=== PATIENT | female | born 1985 | race Caucasian/White ===

== ENCOUNTER 2018-03-06 18:51 | Inpatient (IN) ==
[2018-03-06] MEDS ORDERED: Tetanus/Diphtheria Toxoid Adult Vaccine Inj 0.5 ML Vial IM ONE (19:27)
[2018-03-06] MEDS ORDERED: Piperacil/Tazo 3.375 GM Premix 50 ML IV.SIG ONE (19:32)
[2018-03-06] MEDS ORDERED: Clindamycin 900 mg/NS Premix 900 MG/50 ML PIGGYBACK IV.SIG ONE (19:34)
--- NOTE | 2018-03-06 19:37 | ED ---
HPI General Chief Complaint: Animal Bite Stated Complaint: FGC/Dog Bite Time Seen by Provider: 03/06/18 19:37 Source: patient Mode of arrival: ambulatory Limitations: no limitations History of Present Illness MD complaint: animal bite Onset (ago): hour(s) (2.5) Animal: dog Description of animal: household pet Mechanism: bite Pain description: sharp Severity scale (1-10): 9 Context: playing with animal Associated symptoms: none and weakness (due to pain refusing to move hand much) Related Data Patient tetanus UTD: No (7yrs ago) Home Medications Medication Instructions Recorded Confirmed No Known Home Medications 03/06/18 03/06/18 Allergies Allergy/AdvReac Type Severity Reaction Status Date / Time No Known Allergies Allergy Unverified 03/06/18 18:55 [facility] Medical History Medical History Patient denies medical problems (Acute) Social History Social History Smoking Status: Never smoker How Often Do You Have a Drink Containing Alcohol: 2 to 3 times a week Recent Travel in [facility] within the Last 8 Weeks: No Recent Out of Country Travel within the Last 8 Weeks: No Immunization History Tetanus Immunization: >5 Years Hx Influenza Vaccine This Season: No Exam Narrative Exam Narrative: GENERAL: Well-nourished, well-developed patient in no apparent distress. SKIN: Warm and dry. HEAD: Atraumatic. Normocephalic. EYES: Pupils equal and round. No scleral icterus. No injection or drainage. ENT: No nasal bleeding or discharge. Mucous membranes pink and moist. NECK: Trachea midline. No JVD. CARDIOVASCULAR: Regular rate and rhythm. no rubs or gallops RESPIRATORY: No accessory muscle use. Clear to auscultation. Breath sounds equal bilaterally. GASTROINTESTINAL: Abdomen soft, non-tender, nondistended. No rebound or guarding MUSCULOSKELETAL: Extremities without clubbing, cyanosis, or edema. No obvious deformities. Puncture wound to left hand near the snuffbox with exposed tendon NEUROLOGICAL: Awake and alert. No obvious cranial nerve deficits. Motor grossly within normal limits. Five out of 5 muscle strength in the arms and legs. Normal speech. PSYCHIATRIC: Appropriate mood and affect; insight and judgment normal. Course Initial Documented Vital Signs Pulse Rate 60 03/06/18 18:55 Respiratory Rate 18 03/06/18 18:55 Blood Pressure 111/63 03/06/18 18:55 Pulse Oximetry 100 03/06/18 18:55 Last Documented Vital Signs Temperature 97.9 F 03/06/18 18:58 Pulse Rate 60 03/06/18 18:55 Respiratory Rate 18 03/06/18 18:55 Blood Pressure 111/63 03/06/18 18:55 Pulse Oximetry 100 03/06/18 18:55 Medical Decision Making Lab Data Result diagrams: 03/06/18 18:30 03/06/18 18:30 Lab Results 03/06/18 03/06/18 Range/Units 18:30 18:30 WBC 5.6 (4.0-11.0) th/mm3 RBC 3.98 L (4.00-5.30) mil/mm3 Hgb 12.1 (11.6-15.3) gm/dL Hct 36.1 (35.0-46.0) % MCV 90.9 (80.0-100.0) fL MCH 30.5 (27.0-34.0) pg MCHC 33.5 (32.0-36.0) % RDW 12.5 (11.6-17.2) % Plt Count 247 (150-450) th/mm3 MPV 8.8 (7.0-11.0) fL Neut % (Auto) 61.7 (16.0-70.0) % Lymph % (Auto) 29.2 (9.0-44.0) % [place] % (Auto) 7.6 (0.0-8.0) % Eos % (Auto) 1.0 (0.0-4.0) % Baso % (Auto) 0.5 (0.0-2.0) % Neut # (Auto) 3.4 (1.8-7.7) th/mm3 Lymph # (Auto) 1.6 (1.0-4.8) th/mm3 [place] # (Auto) 0.4 (0.0-0.9) th/mm3 Eos # (Auto) 0.1 (0.0-0.4) th/mm3 Baso # (Auto) 0.0 (0.0-0.2) th/mm3 WBC Differential . Differential Comment Auto diff final Sodium 139 (136-145) meq/L Potassium 3.2 L (3.5-5.1) meq/L Chloride 105 (98-107) meq/L Carbon Dioxide 24.5 (21.0-32.0) meq/L Anion Gap 10 (5-15) meq/L BUN 14 (7-18) mg/dL Creatinine 1.00 (0.50-1.00) mg/dL Estimated GFR 63 L (>89) mL/min Random Glucose 85 (74-106) mg/dL Calcium 8.7 (8.5-10.1) mg/dL Imaging Data Radiologist's impression: Hand X-Ray 03/06/18 19:27 CONCLUSION: Unremarkable study. Discharge Plan Physicians Team ED Provider: Mike Ingram Primary Care Provider: Primary Care Renee Vargas Rxs /Orders / Referrals /Forms Prescriptions: No Action No Known Home Medications RF: 0 Status ED Status: With Doctor
[2018-03-06] MEDS ORDERED: Morphine Inj 4 MG/ML Vial IV.PUSH ONE (19:38)
[2018-03-06 20:08] LABS: Baso % (Auto) 0.5 % (0.0-2.0); Eos # (Auto) 0.1 th/mm3 (0.0-0.4); Hematocrit 36.1 % (35.0-46.0); Hemoglobin 12.1 gm/dL (11.6-15.3); Lymph # (Auto) 1.6 th/mm3 (1.0-4.8); Lymph % (Auto) 29.2 % (9.0-44.0); Mean Corpuscular HGB Conc 33.5 % (32.0-36.0); Mean Corpuscular Hemoglobin 30.5 pg (27.0-34.0); Mean Corpuscular Volume 90.9 fL (80.0-100.0); Mean Platelet Volume 8.8 fL (7.0-11.0); Mono # (Auto) 0.4 th/mm3 (0.0-0.9); Mono % (Auto) 7.6 % (0.0-8.0); Neut # (Auto) 3.4 th/mm3 (1.8-7.7); Neut % (Auto) 61.7 % (16.0-70.0); Platelet Count 247 th/mm3 (150-450); Red Blood Count 3.98 mil/mm3 (4.00-5.30); Red Cell Distribution Width 12.5 % (11.6-17.2); White Blood Count 5.6 th/mm3 (4.0-11.0)
--- NOTE | 2018-03-06 20:16 | XR ---
EXAM DATE: 03/06/2018 8:12 PM EDT AGE/SEX: 32 years / Female INDICATIONS: Left hand pain after getting bit by a dog today. Unable to move left hand since. Open laceration with possible tendon or ligament hanging out near first digit. CLINICAL DATA: This is the patient's initial encounter. Patient reports that signs and symptoms have been present for 1 day and indicates a pain score of 10/10. MEDICAL/SURGICAL HISTORY: None. None. COMPARISON: . FINDINGS: No definite fractures, or dislocations are identified. No definite lytic or sclerotic les ion is seen. The joint spaces are well maintained. CONCLUSION: Unremarkable study. Electronically signed by: Carolyn Wallace MD 03/06/2018 8:14 PM EDT
[2018-03-06 20:19] LABS: Calcium 8.7 mg/dL (8.5-10.1); Carbon Dioxide 24.5 meq/L (21.0-32.0); Potassium 3.2 meq/L (3.5-5.1)
[2018-03-06 20:34] LABS: Activated Partial Thrombo Time 20.8 sec (24.3-30.1); INR 1.1 Ratio
[2018-03-06] MEDS ORDERED: Acetaminophen 325 MG Tablet PO PRN (20:57)
[2018-03-06] MEDS ORDERED: Bisacodyl 10 MG Supp RECTAL PRN (20:57)
--- NOTE | 2018-03-06 21:08 | P.HPIM ---
History of Present Illness Primary Care Physician: No Primary Care Physician History of Present Illness: This is a 32-year-old female with no significant PMH was brought to the ER by EMS after dog bite to left hand. Pt states she was bitten by her own pitbull/ mix dog, notes vaccines up to date. No other injuries noted. On arrival, BP 111/63, HR 60, O2 sat 100% on RA, Afebrile. BC unremarkable. INR 1.1. Chemistry unremarkable except for K+ 3.2. Hand X-ray unremarkable. On exam, patient noted to have puncture wound to left hand w/ exposed tendon, decreased ROM of thumb/2nd finger due to injury. Dr. Covarrubias consulted, plan is for surgical intervention. - Diagnosis (1) Dog bite (2) Hand injury (3) Hypokalemia Review of Systems PAST FAMILY HISTORY: Reviewed. No h/o DM or CAD All other systems reviewed negative except as stated in [facility]PI [facility] - History History Provided By: Patient - Medical History Medical History: Medical History (Last Updated 03/06/18 @ 18:58 by Natalie Prakash RN) Patient denies medical problems - Tobacco History Smoking Status: Never smoker - Alcohol History How Often Do You Have a Drink Containing Alcohol: 2 to 3 times a week - Travel History Recent Travel in the [place] Within the Last 8 Weeks: No Recent Travel Out of the Country Within the Last 8 Weeks: No - Immunization History Tetanus Immunization: >5 Years Hx Influenza Vaccine This Season: No Medications and Allergies Active Medications: Active Medications Acetaminophen (Tylenol) 650 mg PO Q4H PRN PRN Reason: Temp > 100.4 Al Hydroxide/Mg Hydroxide (Milk Of Magnesia Liq) 30 ml PO Q12H PRN PRN Reason: Mild Constipation Bisacodyl (Dulcolax Supp) 10 mg RECTAL DAILY PRN PRN Reason: SEVERE CONSITIPATION Ampicillin Sodium/Sulbactam (Sodium 3 gm/ Sodium Chloride) 100 mls @ 200 mls/ hr IV.SIG Q6H LAUREN Clindamycin/Sodium Chloride (Cleocin 900 Mg/Ns Premix) 900 mg in 50 mls @ 100 mls/hr IV.SIG Q8H LAUREN Sodium Chloride (Ns Inj) 1,000 mls @ 100 mls/hr IV.CONT .Q10H LAUREN Lactulose (Lactulose Liq) 30 ml PO DAILY PRN PRN Reason: SEVERE CONSITIPATION Morphine Sulfate (Morphine Inj) 2 mg IV.PUSH Q4H PRN PRN Reason: PAIN 6-10 Ondansetron HCl (Zofran Inj) 4 mg IV.PUSH Q6H PRN PRN Reason: NAUSEA OR VOMITING Senna/Docusate Sodium ([place]-Colace) 1 tab PO BID LAUREN Sennosides (Senokot) 17.2 mg PO Q12H PRN PRN Reason: Moderate Constipation Allergies Allergy/AdvReac Type Severity Reaction Status Date / Time No Known Allergies Allergy Unverified 03/06/18 18:55 Home Medications Medication Instructions Recorded Confirmed Type No Known Home Medications 03/06/18 03/06/18 History Exam Vital signs: Vital Signs 03/06/18 18:55 03/06/18 18:58 Temperature 97.9 F Pulse Rate 60 Respiratory Rate 18 Blood Pressure 111/63 Pulse Oximetry 100 Intake & Output 03/06/18 03/06/18 03/07/18 06:59 18:59 06:59 Intake Total 100 / 100 Balance 100 / 100 Weight 63.503 kg Intake: IV 100 / 100 Cleocin 900 mg/NS Premix 900 mg 50 / 50 In 50 ml @ 100 mls/hr IV.SIG ONCE ONE Rx#:[id number] Zosyn 3.375 GM Premix 50 ML @ 50 / 50 100 mls/hr IV.SIG ONCE ONE Rx#: [id number] Narrative: PE: GENERAL: Pleasant young white female in no acute distress. SKIN: Focused skin assessment warm and dry. HEENT: PERRLA, EOMI. No scleral icterus or conjunctival pallor. No lid lag or facial droop. CARDIOVASCULAR: Regular rate and rhythm. No obvious murmurs to auscultation. No chest tenderness to palpation. RESPIRATORY: No obvious rhonchi or wheezing. Clear to auscultation. Breath sounds equal bilaterally. GASTROINTESTINAL: Abdomen soft, non-tender, nondistended. BS normal. MUSCULOSKELETAL: Extremities without clubbing, cyanosis, or edema. No obvious deformities. Left hand w/ puncture to left thumb/snuff box w/ exposed tendon. Decreased ROM of 1st/2nd digits. NEUROLOGICAL: Awake, alert and oriented x4. No focal neurologic deficits. Moving both upper and lower extremities spontaneously. PSYCHIATRIC: Appropriate mood and affect. Insight and judgment normal. Results - Labs CBC & Chem 7: 03/06/18 18:30 03/06/18 18:30 Labs: Short CBC 03/06/18 Range/Units 18:30 WBC 5.6 (4.0-11.0) th/mm3 Hgb 12.1 (11.6-15.3) gm/dL Hct 36.1 (35.0-46.0) % Plt Count 247 (150-450) th/mm3 BMP 03/06/18 18:30 Sodium 139 Potassium 3.2 L Chloride 105 Carbon Dioxide 24.5 BUN 14 Creatinine 1.00 Calcium 8.7 - Imaging Impressions Hand X-Ray 03/06/18 19:27 CONCLUSION: Unremarkable study. Caprini VTE Risk Assessment Caprini VTE Risk Assessment: No/Low Risk (score <= 1) Caprini Risk Assessment Model: Point Value = 1 Point Value = 2 Point Value = 3 Point Value = 5 Age 41-60 Minor surgery BMI > 25 kg/m2 Swollen legs Varicose veins or History of unexplained or recurrent spontaneous Oral contraceptives or hormone replacement Sepsis (< 1 month) Serious lung disease, including pneumonia (< 1 month) Abnormal pulmonary function Acute myocardial infarction Congestive heart failure (< 1 month) History of inflammatory bowel disease Medical patient at bed rest Age 61-74 Arthroscopic surgery Major open surgery (> 45 min) Laparoscopic surgery (> 45 min) Malignancy Confined to bed (> 72 hours) Immobilizing plaster cast Central venous access Age >= 75 History of VTE Family history of VTE Factor V Leiden Prothrombin [id number] Lupus anticoagulant Anticardiolipin antibodies Elevated serum homocysteine Heparin-induced thrombocytopenia Other congenital or acquired thrombophilia Stroke (< 1 month) Elective arthroplasty Hip, pelvis, or leg fracture Acute spinal cord injury (< 1 month) Prophylaxis Regimen: Total Risk Factor Score Risk Level Prophylaxis Regimen 0-1 Low Early ambulation 2 Moderate Order ONE of the following: *Sequential Compression Device (SCD) *Heparin 5000 units SQ BID 3-4 Higher Order ONE of the following medications: *Heparin 5000 units SQ TID *Enoxaparin/Lovenox 40 mg SQ daily (WT < 150 kg, CrCl > 30 mL/min) *Enoxaparin/Lovenox 30 mg SQ daily (WT < 150 kg, CrCl > 10-29 mL/min) *Enoxaparin/Lovenox 30 mg SQ BID (WT < 150 kg, CrCl > 30 mL/min) AND/OR *Sequential Compression Device (SCD) 5 or more Highest Order ONE of the following medications: *Heparin 5000 units SQ TID (Preferred with Epidurals) *Enoxaparin/Lovenox 40 mg SQ daily (WT < 150 kg, CrCl > 30 mL/min) *Enoxaparin/Lovenox 30 mg SQ daily (WT < 150 kg, CrCl > 10-29 mL/min) *Enoxaparin/Lovenox 30 mg SQ BID (WT < 150 kg, CrCl > 30 mL/min) AND *Sequential Compression Device (SCD) Assessment and Plan - Assessment (1) Dog bite Code(s): W54.0XXA - Bitten by dog, initial encounter Status: Acute (2) Hand injury Code(s): S69.90XA - Unspecified injury of unspecified wrist, hand and finger(s) , initial encounter Status: Acute (3) Hypokalemia Code(s): E87.6 - Hypokalemia Status: Acute - Plan A/P: 1. Dog Bite: s/p dog bite to left hand by pt's own dog, notes vaccinations up to date, s/p Tetanus in ER. 2. Hand Injury: secondary to above, left thumb/snuff box puncture w/ exposed tendon, X-ray w/ no acute findings, images reviewed, Dr. Covarrubias consulted, plan is for surgical intervention. NPO, IVF, analgesics/antiemetics as needed. 3. Hypokalemia: K+ 3.2, will replace and recheck as needed. 4. DVT Prophylaxis: SCD/Teds 5. Social work for d/c planning as needed 6. Case discussed w/ ER physician at length, labs/records/imaging reviewed by me
[2018-03-06] MEDS: Senna/Docusate Sodium 8.6/50 MG Tablet PO SCH (21:45)
[2018-03-06] MEDS: Sod Chloride 0.9% Inj 1,000 ML IV.CONT SCH (21:46)
[2018-03-07] MEDS: Morphine Sulfate Inj 2 MG/ML Vial IV.PUSH PRN ×4 (00:09→14:39)
[2018-03-07] MEDS: Ampicillin/Sulbactam Inj 3 GM in Sodium Chloride 0.9% Inj 100 ML IV.SIG SCH ×5 (02:16→20:43)
[2018-03-07] MEDS: Clindamycin 900 mg/NS Premix 900 MG/50 ML PIGGYBACK IV.SIG SCH ×3 (03:04→17:38)
[2018-03-07 05:36] LABS: Baso % (Auto) 0.4 % (0.0-2.0); Eos % (Auto) 0.1 % (0.0-4.0); Hematocrit 35.1 % (35.0-46.0); Hemoglobin 11.6 gm/dL (11.6-15.3); Lymph # (Auto) 1.2 th/mm3 (1.0-4.8); Lymph % (Auto) 19.6 % (9.0-44.0); Mean Corpuscular HGB Conc 33.1 % (32.0-36.0); Mean Corpuscular Volume 90.7 fL (80.0-100.0); Mono # (Auto) 0.6 th/mm3 (0.0-0.9); Mono % (Auto) 9.1 % (0.0-8.0); Neut # (Auto) 4.3 th/mm3 (1.8-7.7); Neut % (Auto) 70.8 % (16.0-70.0); Platelet Count 229 th/mm3 (150-450); Red Blood Count 3.87 mil/mm3 (4.00-5.30); Red Cell Distribution Width 12.7 % (11.6-17.2); White Blood Count 6.1 th/mm3 (4.0-11.0)
[2018-03-07 06:11] LABS: Alanine Aminotransferase 20 U/L (10-53); Albumin 3.5 g/dL (3.4-5.0); Alkaline Phosphatase 47 U/L (45-117); Anion Gap 9 meq/L (5-15); Aspartate Aminotransferase 13 U/L (15-37); Blood Urea Nitrogen 12 mg/dL (7-18); Calcium 8.2 mg/dL (8.5-10.1); Carbon Dioxide 22.7 meq/L (21.0-32.0); Chloride 109 meq/L (98-107); Glomerular Filtration Rate 79 mL/min (>89); Glucose,Random 94 mg/dL (74-106); Potassium 4.1 meq/L (3.5-5.1); Sodium 141 meq/L (136-145); Total Protein 6.4 g/dL (6.4-8.2)
[2018-03-07] MEDS: Senna/Docusate Sodium 8.6/50 MG Tablet PO SCH ×2 (08:57→20:44)
[2018-03-07] MEDS: Sod Chloride 0.9% Inj 1,000 ML IV.CONT SCH ×2 (08:57→17:39)
[2018-03-07] MEDS ORDERED: Lidocaine 2% Inj 50 ML Vial ONE (10:53)
[2018-03-07] MEDS ORDERED: Neostigmine Inj 5 MG/5 ML Syringe IV.PUSH ONE (11:15)
[2018-03-07] MEDS ORDERED: Glycopyrrolate Inj 1 MG/5 ML Syringe IV.PUSH ONE (11:15)
[2018-03-07] MEDS ORDERED: Ketorolac Inj 30 MG/ML (IVP) Vial IV.PUSH ONE (11:15)
[2018-03-07] MEDS ORDERED: Lidocaine PF 1% Inj 5 ML Syringe OTHER ONE (11:15)
--- NOTE | 2018-03-07 11:50 | P.PNIM ---
Subjective Interval history: This is a 32-year-old female with no significant PMH was brought to the ER by EMS after dog bite to left hand. Pt states she was bitten by her own pitbull/ mix dog, notes vaccines up to date. No other injuries noted. On arrival, BP 111/63, HR 60, O2 sat 100% on RA, Afebrile. BC unremarkable. INR 1.1. Chemistry unremarkable except for K+ 3.2. Hand X-ray unremarkable. On exam, patient noted to have puncture wound to left hand w/ exposed tendon, decreased ROM of thumb/2nd finger due to injury. Dr. Covarrubias consulted, plan is for surgical intervention. 03-07 PATIENT TO GO FOR SURGERY WITH DR COVARRUBIAS TODAY CONTINUE CURRENT CARE AM LABS DW RN AND PATIENT AND CASE MANAGEMENT Physical Exam Vital signs: Vital Signs 03/06/18 18:55 03/06/18 18:58 03/07/18 00:00 Temperature 97.9 F 97.6 F Pulse Rate 60 55 L Respiratory Rate 18 16 Blood Pressure 111/63 106/59 L Pulse Oximetry 100 97 03/07/18 04:00 03/07/18 08:00 Temperature 97.7 F 98.2 F Pulse Rate 54 L 50 L Respiratory Rate 16 14 Blood Pressure 103/52 L 103/58 L Pulse Oximetry 97 100 Intake & Output 03/06/18 03/07/18 03/07/18 18:59 06:59 18:59 Intake Total 270 / 270 1080 / 1080 Balance 270 / 270 1080 / 1080 Weight 63.503 kg 63.5 kg Intake: IV 270 / 270 1080 / 1080 NS Inj 1,000 ML @ 100 mls/hr IV 20 980 / 980 .CONT .Q10H LAUREN Rx#:[id number] Unasyn Inj 3 GM In NS Inj 100 100 / 100 100 / 100 ML @ 200 mls/hr IV.SIG Q6H LAUREN Rx#:[id number] Cleocin 900 mg/NS Premix 900 mg 100 / 100 In 50 ml @ 100 mls/hr IV.SIG Q8H LAUREN Rx#:[id number] Zosyn 3.375 GM Premix 50 ML @ 50 / 50 100 mls/hr IV.SIG ONCE ONE Rx#: [id number] Other: Date of Last Bowel Movement 03/06/18 03/06/18 Narrative: GENERAL: Pleasant young white female in no acute distress. SKIN: Focused skin assessment warm and dry. LEFT HAND IS DRESSED HEENT: PERRLA, EOMI. No scleral icterus or conjunctival pallor. No lid lag or facial droop. CARDIOVASCULAR: Regular rate and rhythm. No obvious murmurs to auscultation. No chest tenderness to palpation. RESPIRATORY: No obvious rhonchi or wheezing. Clear to auscultation. Breath sounds equal bilaterally. GASTROINTESTINAL: Abdomen soft, non-tender, nondistended. BS normal. MUSCULOSKELETAL: Extremities without clubbing, cyanosis, or edema. No obvious deformities. Left hand w/ puncture to left thumb/snuff box w/ exposed tendon. Decreased ROM of 1st/2nd digits. LEFT HAND IS DRESSED NEUROLOGICAL: Awake, alert and oriented x4. No focal neurologic deficits. Moving both upper and lower extremities spontaneously. PSYCHIATRIC: Appropriate mood and affect. Insight and judgment normal. Results - Labs CBC & Chem 7: 03/07/18 04:30 03/07/18 04:30 Laboratory Results - last 24 hr 03/06/18 03/06/18 03/06/18 18:30 18:30 18:30 WBC 5.6 RBC 3.98 L Hgb 12.1 Hct 36.1 MCV 90.9 MCH 30.5 MCHC 33.5 RDW 12.5 Plt Count 247 MPV 8.8 Neut % (Auto) 61.7 Lymph % (Auto) 29.2 [place] % (Auto) 7.6 Eos % (Auto) 1.0 Baso % (Auto) 0.5 Neut # (Auto) 3.4 Lymph # (Auto) 1.6 [place] # (Auto) 0.4 Eos # (Auto) 0.1 Baso # (Auto) 0.0 WBC Differential . Differential Comment Auto diff final PT 11.0 INR 1.1 APTT 20.8 L Sodium 139 Potassium 3.2 L Chloride 105 Carbon Dioxide 24.5 Anion Gap 10 BUN 14 Creatinine 1.00 Estimated GFR 63 L Random Glucose 85 Calcium 8.7 Total Bilirubin AST ALT Alkaline Phosphatase Total Protein Albumin 03/07/18 03/07/18 04:30 04:30 WBC 6.1 RBC 3.87 L Hgb 11.6 Hct 35.1 MCV 90.7 MCH 30.0 MCHC 33.1 RDW 12.7 Plt Count 229 MPV 9.0 Neut % (Auto) 70.8 H Lymph % (Auto) 19.6 [place] % (Auto) 9.1 H Eos % (Auto) 0.1 Baso % (Auto) 0.4 Neut # (Auto) 4.3 Lymph # (Auto) 1.2 [place] # (Auto) 0.6 Eos # (Auto) 0.0 Baso # (Auto) 0.0 WBC Differential . Differential Comment Auto diff final PT INR APTT Sodium 141 Potassium 4.1 D Chloride 109 H Carbon Dioxide 22.7 Anion Gap 9 BUN 12 Creatinine 0.83 Estimated GFR 79 L Random Glucose 94 Calcium 8.2 L Total Bilirubin 0.9 AST 13 L ALT 20 Alkaline Phosphatase 47 Total Protein 6.4 Albumin 3.5 - Imaging Impressions Hand X-Ray 03/06/18 19:27 CONCLUSION: Unremarkable study. Assessment and Plan - Assessment (1) Dog bite Code(s): W54.0XXA - Bitten by dog, initial encounter Status: Acute (2) Hand injury Code(s): S69.90XA - Unspecified injury of unspecified wrist, hand and finger(s) , initial encounter Status: Acute (3) Hypokalemia Code(s): E87.6 - Hypokalemia Status: Acute - Plan 1. Dog Bite: s/p dog bite to left hand by pt's own dog, notes vaccinations up to date, s/p Tetanus in ER. 2. Hand Injury: secondary to above, left thumb/snuff box puncture w/ exposed tendon, X-ray w/ no acute findings, images reviewed, Dr. Covarrubias consulted, plan is for surgical intervention. NPO, IVF, analgesics/antiemetics as needed. --TO GO FOR SURGERY TODAY 3. Hypokalemia: K+ 3.2, will replace and recheck as needed. 4. DVT Prophylaxis: SCD/Teds 5. Social work for d/c planning as needed AM LABS DW RN AND PT AND CM Code Status: FULL CODE Discussed Condition With: RN AND PT AND CM Discharge Planning: ONCE CLEARED BY HAND SURGERY
[2018-03-07] MEDS ORDERED: Neomycin/Polymyxin G.U. Irrigant 1 ML Ampul ONE ×2 (11:57→12:01)
--- NOTE | 2018-03-07 13:56 | P.PNOP ---
Physical Exam Vital signs: Vital Signs 03/06/18 18:55 03/06/18 18:58 03/07/18 00:00 Temperature 97.9 F 97.6 F Pulse Rate 60 55 L Respiratory Rate 18 16 Blood Pressure 111/63 106/59 L Pulse Oximetry 100 97 03/07/18 04:00 03/07/18 08:00 Temperature 97.7 F 98.2 F Pulse Rate 54 L 50 L Respiratory Rate 16 14 Blood Pressure 103/52 L 103/58 L Pulse Oximetry 97 100 Intake & Output 03/06/18 03/07/18 03/07/18 18:59 06:59 18:59 Intake Total 270 / 270 2079 Output Total Balance 270 / 270 2059 Weight 63.503 kg 63.5 kg Intake: IV 270 / 270 1180 / 1180 NS Inj 1,000 ML @ 100 mls/hr IV 980 / 980 .CONT .Q10H LAUREN Rx#:[id number] Unasyn Inj 3 GM In NS Inj 100 100 / 100 100 / 100 ML @ 200 mls/hr IV.SIG Q6H LAUREN Rx#:[id number] Cleocin 900 mg/NS Premix 900 mg 100 / 100 In 50 ml @ 100 mls/hr IV.SIG Q8H LAUREN Rx#:[id number] Zosyn 3.375 GM Premix 50 ML @ 50 / 50 100 mls/hr IV.SIG ONCE ONE Rx#: [id number] Ancef Inj 1,000 MG In NS Inj 100 / 100 100 ML @ 100 mls/hr IV.SIG ONCE ONE Rx#:[id number] Anesthesia Amount 900 / 900 Output: Estimated Blood Loss Other: Date of Last Bowel Movement 03/06/18 03/06/18 Results - Labs CBC & Chem 7: 03/07/18 04:30 03/07/18 04:30 Laboratory Results - last 24 hr 03/06/18 03/06/18 03/06/18 18:30 18:30 18:30 WBC 5.6 RBC 3.98 L Hgb 12.1 Hct 36.1 MCV 90.9 MCH 30.5 MCHC 33.5 RDW 12.5 Plt Count 247 MPV 8.8 Neut % (Auto) 61.7 Lymph % (Auto) 29.2 [place] % (Auto) 7.6 Eos % (Auto) 1.0 Baso % (Auto) 0.5 Neut # (Auto) 3.4 Lymph # (Auto) 1.6 [facility] # (Auto) 0.4 Eos # (Auto) 0.1 Baso # (Auto) 0.0 WBC Differential . Differential Comment Auto diff final PT 11.0 INR 1.1 APTT 20.8 L Sodium 139 Potassium 3.2 L Chloride 105 Carbon Dioxide 24.5 Anion Gap 10 BUN 14 Creatinine 1.00 Estimated GFR 63 L Random Glucose 85 Calcium 8.7 Total Bilirubin AST ALT Alkaline Phosphatase Total Protein Albumin 03/07/18 03/07/18 04:30 04:30 WBC 6.1 RBC 3.87 L Hgb 11.6 Hct 35.1 MCV 90.7 MCH 30.0 MCHC 33.1 RDW 12.7 Plt Count 229 MPV 9.0 Neut % (Auto) 70.8 H Lymph % (Auto) 19.6 [facility] % (Auto) 9.1 H Eos % (Auto) 0.1 Baso % (Auto) 0.4 Neut # (Auto) 4.3 Lymph # (Auto) 1.2 [facility] # (Auto) 0.6 Eos # (Auto) 0.0 Baso # (Auto) 0.0 WBC Differential . Differential Comment Auto diff final PT INR APTT Sodium 141 Potassium 4.1 D Chloride 109 H Carbon Dioxide 22.7 Anion Gap 9 BUN 12 Creatinine 0.83 Estimated GFR 79 L Random Glucose 94 Calcium 8.2 L Total Bilirubin 0.9 AST 13 L ALT 20 Alkaline Phosphatase 47 Total Protein 6.4 Albumin 3.5 - Imaging Impressions Hand X-Ray 03/06/18 19:27 CONCLUSION: Unremarkable study. Assessment and Plan - Assessment and Plan 32yF POD0 s/p I&D left hand, EIP to EPL tendon transfer for EPL avulsion -Keep splint in place -Followup in 2 weeks, will need hand therapy -Discharge on antibiotics
[2018-03-07] MEDS ORDERED: fentaNYL Citrate Inj 100 MCG/2 ML Ampul ONE (13:57)
[2018-03-07] MEDS ORDERED: Naloxone Inj 0.4 MG/ML Vial IV.PUSH PRN (17:23)
[2018-03-07] MEDS ORDERED: Morphine Sulfate Inj 2 MG/ML Vial IV.PUSH PRN (17:23)
[2018-03-07] MEDS: oxyCODONE/Acetaminophen 10/325 Tablet PO PRN ×2 (17:38→23:14)
--- NOTE | 2018-03-07 18:48 | MP ---
cc: Maritza Covarrubias MD DATE OF OPERATION: 03/07/2018 PREOPERATIVE DIAGNOSIS: 1. Dog bite, left hand. 2. Avulsion extensor pollicis longus tendon, left hand. POSTOPERATIVE DIAGNOSIS: 1. Dog bite, left hand. 2. Avulsion extensor pollicis longus tendon, left hand. PROCEDURES: 1. Irrigation and debridement, left hand, including skin and subcutaneous tissue. 2. Tendon transfer: Extensor indicis pollicis to extensor pollicis longus. SURGEON: Maritza Covarrubias MD ANESTHESIA: General and local. TOURNIQUET TIME: 62 minutes at 200 mmHg. INDICATIONS FOR PROCEDURE: Zabrina Grullon is a 32-year-old, right-hand dominant female who presented to the emergency room last night after being bitten by her dog. The patient was admitted for antibiotics and surgical intervention. Patient wanted to proceed with surgical intervention. Risks were explained which include but are not limited to wound complication, infection, stiffness, pain, need for additional surgeries, and she elected to proceed. DESCRIPTION PROCEDURE: The patient was identified in the preoperative holding area and the correct extremity was marked. The patient was taken to the operating room where anesthesia was induced. Left upper extremity was prepped in the normal sterile fashion. The wound was extended proximally and distally. The stump of the extensor pollicis longus was found distally. There was no remaining tendon proximally as there was just the EPL muscle belly without any tendon. Thus, decision was made to perform an EIP to EPL tendon transfer. The EIP was identified and incised distally. The tendon was brought underneath the sensory branch and repaired with the thumb in extension. This had improved extension of the thumb as well as well-maintained flexion to the index finger. This was repaired with a Pulvertaft weave using a FiberWire. Tourniquet was released. Hemostasis obtained. The wounds were irrigated with antibiotic saline and closed with nylon. The patient was placed at the thumb spica splint and awoken from anesthesia without any complications. She remained in the hospital on IV antibiotics and will begin on a therapy course. Maritza Covarrubias MD [facility]/karen , 02:02 PM , 02:09 PM JUAN
--- NOTE | 2018-03-07 18:51 | MB ---
cc: Maritza Covarrubias MD DATE: 03/07/2018 REASON FOR CONSULTATION: Dog bite, left hand. 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 She presented to the emergency room for evaluation. She does report a prior injury to the left hand many years ago. PAST MEDICAL HISTORY: Denies any. PAST SURGICAL HISTORY: Denies. SOCIAL HISTORY: Drinks social alcohol. Denies tobacco or drug use. PHYSICAL EXAMINATION: The patient has a puncture wound over the first web space with exposed tendon. The patient is unable to extend the thumb. She was able to extend the remaining fingers. Sensation is intact in the medial and radial distribution. 2+ radial pulse. RADIOLOGY DATA: X-rays show no fracture. ASSESSMENT AND PLAN: A 32-year-old female with a dog bite to the left hand. She elects to proceed with surgical intervention. I discussed with the patient that she may require tendon repair, possible tendon repair with an allograft, possible tendon transfer, and she elects to proceed. MD MARCIO Tafoya/karen , 02:04 PM , 02:08 PM MTDD
[2018-03-07] MEDS: Morphine Inj 4 MG/ML Vial IV.PUSH PRN (20:44)
[2018-03-08] MEDS: Clindamycin 900 mg/NS Premix 900 MG/50 ML PIGGYBACK IV.SIG SCH ×2 (01:45→10:57)
[2018-03-08] MEDS: Sod Chloride 0.9% Inj 1,000 ML IV.CONT SCH ×2 (01:48→04:36)
[2018-03-08] MEDS: Ampicillin/Sulbactam Inj 3 GM in Sodium Chloride 0.9% Inj 100 ML IV.SIG SCH ×2 (02:21→09:05)
[2018-03-08] MEDS: Morphine Inj 4 MG/ML Vial IV.PUSH PRN (02:22)
[2018-03-08 05:00] LABS: Baso % (Auto) 0.2 % (0.0-2.0); Eos % (Auto) 0.1 % (0.0-4.0); Hematocrit 32.4 % (35.0-46.0); Hemoglobin 10.9 gm/dL (11.6-15.3); Lymph # (Auto) 1.5 th/mm3 (1.0-4.8); Lymph % (Auto) 22.2 % (9.0-44.0); Mean Corpuscular HGB Conc 33.7 % (32.0-36.0); Mean Corpuscular Hemoglobin 30.6 pg (27.0-34.0); Mean Corpuscular Volume 90.8 fL (80.0-100.0); Mean Platelet Volume 8.7 fL (7.0-11.0); Mono # (Auto) 0.6 th/mm3 (0.0-0.9); Mono % (Auto) 9.6 % (0.0-8.0); Neut # (Auto) 4.6 th/mm3 (1.8-7.7); Neut % (Auto) 67.9 % (16.0-70.0); Platelet Count 214 th/mm3 (150-450); Red Blood Count 3.57 mil/mm3 (4.00-5.30); Red Cell Distribution Width 12.5 % (11.6-17.2); White Blood Count 6.8 th/mm3 (4.0-11.0)
[2018-03-08 05:22] LABS: Albumin 3.3 g/dL (3.4-5.0); Anion Gap 11 meq/L (5-15); Aspartate Aminotransferase 11 U/L (15-37); Blood Urea Nitrogen 10 mg/dL (7-18); Calcium 8.1 mg/dL (8.5-10.1); Carbon Dioxide 23.1 meq/L (21.0-32.0); Chloride 102 meq/L (98-107); Glomerular Filtration Rate 86 mL/min (>89); Glucose,Random 95 mg/dL (74-106); Potassium 4.1 meq/L (3.5-5.1); Sodium 136 meq/L (136-145)
[2018-03-08 05:31] LABS: Alanine Aminotransferase 16 U/L (10-53); Alkaline Phosphatase 43 U/L (45-117); Free T4 (Free Thyroxine) 1.41 ng/dL (0.76-1.46); Phosphorus 4.3 mg/dL (2.5-4.9); Total Protein 6.1 g/dL (6.4-8.2)
[2018-03-08] MEDS: oxyCODONE/Acetaminophen 10/325 Tablet PO PRN ×2 (05:37→11:13)
[2018-03-08] MEDS: Senna/Docusate Sodium 8.6/50 MG Tablet PO SCH (09:05)
--- NOTE | 2018-03-08 12:21 | P.PNIM ---
Subjective Interval history: This is a 32-year-old female with no significant PMH was brought to the ER by EMS after dog bite to left hand. Pt states she was bitten by her own pitbull/ mix dog, notes vaccines up to date. No other injuries noted. On arrival, BP 111/63, HR 60, O2 sat 100% on RA, Afebrile. BC unremarkable. INR 1.1. Chemistry unremarkable except for K+ 3.2. Hand X-ray unremarkable. On exam, patient noted to have puncture wound to left hand w/ exposed tendon, decreased ROM of thumb/2nd finger due to injury. Dr. Covarrubias consulted, plan is for surgical intervention. 03-07 PATIENT TO GO FOR SURGERY WITH DR COVARRUBIAS TODAY CONTINUE CURRENT CARE AM LABS STEVEN RN AND PATIENT AND CASE MANAGEMENT 03-08 TOLERATING PAIN TAKING PERCOCET STEVEN RN AND PT WANTS TO GO HOME HAS COUGH WILL GIVE MUCINEX AND AUGMENTING TAKE IS TO USE AT HOME DC TO HOME TODAY FOLLOW UP WITH DR COVARRUBIAS IN 1 WEEK Physical Exam Vital signs: Vital Signs 03/07/18 14:00 03/07/18 14:10 03/07/18 14:22 Temperature 99.0 F 99.0 F Pulse Rate 79 70 64 Respiratory Rate 18 18 21 Blood Pressure 113/58 L 110/58 L 106/55 L Pulse Oximetry 98 95 98 03/07/18 16:00 03/07/18 19:25 03/07/18 23:00 Temperature 97.9 F 98.0 F 98.1 F Pulse Rate 48 L 45 L 62 Respiratory Rate 16 17 17 Blood Pressure 116/57 L 115/59 L 114/55 L Pulse Oximetry 99 99 95 03/08/18 03:59 Temperature 98.0 F Pulse Rate 50 L Respiratory Rate 17 Blood Pressure 106/55 L Pulse Oximetry 96 Intake & Output 03/07/18 03/08/18 03/08/18 18:59 06:59 18:59 Intake Total 3066 / 3066 730 / 730 250 / 250 Output Total 20 / 20 Balance 3046 / 3046 730 / 730 250 / 250 Weight 63.5 kg Intake: IV 2166 / 2166 250 / 250 250 / 250 NS Inj 1,000 ML @ 100 mls/hr IV 1816 / 1816 100 / 100 .CONT .Q10H COUNT INCLUDES THE [facility] Rx#:[id number] Unasyn Inj 3 GM In NS Inj 100 200 / 200 200 / 200 100 / 100 ML @ 200 mls/hr IV.SIG Q6H COUNT INCLUDES THE [facility] Rx#:[id number] Cleocin 900 mg/NS Premix 900 mg 50 / 50 50 / 50 50 / 50 In 50 ml @ 100 mls/hr IV.SIG Q8H COUNT INCLUDES THE [facility] Rx#:[id number] Ancef Inj 1,000 MG In NS Inj 100 / 100 100 ML @ 100 mls/hr IV.SIG ONCE ONE Rx#:[id number] Oral 480 / 480 Anesthesia Amount 900 / 900 Output: Estimated Blood Loss Other: # Voids 6 Date of Last Bowel Movement 03/06/18 03/08/18 # Bowel Movements 0 Narrative: GENERAL: Pleasant young white female in no acute distress. SKIN: Focused skin assessment warm and dry. LEFT HAND IS DRESSED HEENT: PERRLA, EOMI. No scleral icterus or conjunctival pallor. No lid lag or facial droop. CARDIOVASCULAR: Regular rate and rhythm. No obvious murmurs to auscultation. No chest tenderness to palpation. RESPIRATORY: No obvious rhonchi or wheezing. Clear to auscultation. Breath sounds equal bilaterally. GASTROINTESTINAL: Abdomen soft, non-tender, nondistended. BS normal. MUSCULOSKELETAL: Extremities without clubbing, cyanosis, or edema. No obvious deformities. Left hand w/ puncture to left thumb/snuff box w/ exposed tendon. Decreased ROM of 1st/2nd digits. LEFT HAND IS DRESSED NEUROLOGICAL: Awake, alert and oriented x4. No focal neurologic deficits. Moving both upper and lower extremities spontaneously. PSYCHIATRIC: Appropriate mood and affect. Insight and judgment normal. Results - Labs CBC & Chem 7: 03/08/18 04:35 03/08/18 04:35 Laboratory Results - last 24 hr 03/08/18 03/08/18 04:35 04:35 WBC 6.8 RBC 3.57 L Hgb 10.9 L Hct 32.4 L MCV 90.8 MCH 30.6 MCHC 33.7 RDW 12.5 Plt Count 214 MPV 8.7 Neut % (Auto) 67.9 Lymph % (Auto) 22.2 [place] % (Auto) 9.6 H Eos % (Auto) 0.1 Baso % (Auto) 0.2 Neut # (Auto) 4.6 Lymph # (Auto) 1.5 [place] # (Auto) 0.6 Eos # (Auto) 0.0 Baso # (Auto) 0.0 WBC Differential . Differential Comment Auto diff final Sodium 136 Potassium 4.1 Chloride 102 Carbon Dioxide 23.1 Anion Gap 11 BUN 10 Creatinine 0.77 Estimated GFR 86 L Random Glucose 95 Calcium 8.1 L Phosphorus 4.3 Magnesium 2.0 Total Bilirubin 1.2 H AST 11 L ALT 16 Alkaline Phosphatase 43 L Total Protein 6.1 L Albumin 3.3 L TSH 1.220 Free T4 1.41 - Imaging Hand X-Ray 03/06/18 19:27 CONCLUSION: Unremarkable study. - Procedures DATE OF OPERATION: 03/07/2018 PREOPERATIVE DIAGNOSIS: 1. Dog bite, left hand. 2. Avulsion extensor pollicis longus tendon, left hand. POSTOPERATIVE DIAGNOSIS: 1. Dog bite, left hand. 2. Avulsion extensor pollicis longus tendon, left hand. PROCEDURES: 1. Irrigation and debridement, left hand, including skin and subcutaneous tissue. 2. Tendon transfer: Extensor indicis pollicis to extensor pollicis longus. SURGEON: Maritza Covarrubias MD ANESTHESIA: General and local. TOURNIQUET TIME: 62 minutes at 200 mmHg. INDICATIONS FOR PROCEDURE: Zabrina Grullon is a 32-year-old, right-hand dominant female who presented to the emergency room last night after being bitten by her dog. The patient was admitted for antibiotics and surgical intervention. Patient wanted to proceed with surgical intervention. Risks were explained which include but are not limited to wound complication, infection, stiffness, pain, need for additional surgeries, and she elected to proceed. DESCRIPTION PROCEDURE: The patient was identified in the preoperative holding area and the correct extremity was marked. The patient was taken to the operating room where anesthesia was induced. Left upper extremity was prepped in the normal sterile fashion. The wound was extended proximally and distally. The stump of the extensor pollicis longus was found distally. There was no remaining tendon proximally as there was just the EPL muscle belly without any tendon. Thus, decision was made to perform an EIP to EPL tendon transfer. The EIP was identified and incised distally. The tendon was brought underneath the sensory branch and repaired with the thumb in extension. This had improved extension of the thumb as well as well-maintained flexion to the index finger. This was repaired with a Pulvertaft weave using a FiberWire. Tourniquet was released. Hemostasis obtained. The wounds were irrigated with antibiotic saline and closed with nylon. The patient was placed at the thumb spica splint and awoken from anesthesia without any complications. She remained in the hospital on IV antibiotics and will begin on a therapy course. Maritza Covarrubias MD Assessment and Plan - Assessment (1) Dog bite Code(s): W54.0XXA - Bitten by dog, initial encounter Status: Acute (2) Hand injury Code(s): S69.90XA - Unspecified injury of unspecified wrist, hand and finger(s) , initial encounter Status: Acute (3) Hypokalemia Code(s): E87.6 - Hypokalemia Status: Acute - Plan 1. Dog Bite: s/p dog bite to left hand by pt's own dog, notes vaccinations up to date, s/p Tetanus in ER. 2. Hand Injury: secondary to above, left thumb/snuff box puncture w/ exposed tendon, X-ray w/ no acute findings, images reviewed, Dr. Covarrubias consulted, plan is for surgical intervention. NPO, IVF, analgesics/antiemetics as needed. --TO GO FOR SURGERY TODAY 3. Hypokalemia: K+ 3.2, will replace and recheck as needed. 4. DVT Prophylaxis: SCD/Teds 5. Social work for d/c planning as needed DC TO HOME TODAY AUGMENTIN PERCOCET AND MUCINEX DC TO HOME Code Status: FULL CODE Discussed Condition With: RN AND PT AND CM Discharge Planning: DC TO HOME TODAY
--- NOTE | 2018-03-08 12:35 | P.DS ---
Date of admission: 03/06/18 21:06 Primary care physician: No Primary Care Physician Attending physician on discharge: Nabil Solares Anticipated date of discharge: 03/08/18 Brief History from admission: This is a 32-year-old female with no significant PMH was brought to the ER by EMS after dog bite to left hand. Pt states she was bitten by her own pitbull/ mix dog, notes vaccines up to date. No other injuries noted. On arrival, BP 111/63, HR 60, O2 sat 100% on RA, Afebrile. BC unremarkable. INR 1.1. Chemistry unremarkable except for K+ 3.2. Hand X-ray unremarkable. On exam, patient noted to have puncture wound to left hand w/ exposed tendon, decreased ROM of thumb/2nd finger due to injury. Dr. Covarrubias consulted, plan is for surgical intervention. Patient update on day of discharge: This is a 32-year-old female with no significant PMH was brought to the ER by EMS after dog bite to left hand. Pt states she was bitten by her own pitbull/ mix dog, notes vaccines up to date. No other injuries noted. On arrival, BP 111/63, HR 60, O2 sat 100% on RA, Afebrile. BC unremarkable. INR 1.1. Chemistry unremarkable except for K+ 3.2. Hand X-ray unremarkable. On exam, patient noted to have puncture wound to left hand w/ exposed tendon, decreased ROM of thumb/2nd finger due to injury. Dr. Covarrubias consulted, plan is for surgical intervention. 03-07 PATIENT TO GO FOR SURGERY WITH DR COVARRUBIAS TODAY CONTINUE CURRENT CARE AM LABS STEVEN SHRESTHA AND PATIENT AND CASE MANAGEMENT 03-08 TOLERATING PAIN TAKING PERCOCET STEVEN SHRESTHA AND PT WANTS TO GO HOME HAS COUGH WILL GIVE MUCINEX AND AUGMENTING TAKE IS TO USE AT HOME DC TO HOME TODAY FOLLOW UP WITH DR COVARRUBIAS IN 1 WEEK HAD SURGERY WITH DR COVARRUBIAS YESTERDAY 02-04 DS: Diagnosis - Discharge Diagnosis (1) Dog bite Status: Acute (2) Hand injury Status: Acute (3) Hypokalemia Status: Acute DS: Medications - Discharge Medications Prescriptions: dextromethorphan-guaifenesin [Mucinex DM] 1 tab PO Q12H #30 tab oxycodone-acetaminophen 1 tab PO Q6H PRN #28 tab PRN Reason: Pain sennosides-docusate sodium [Senna Plus] 2 tab PO BID #120 tab DS: Summary Hospital Course: This is a 32-year-old female with no significant PMH was brought to the ER by EMS after dog bite to left hand. Pt states she was bitten by her own pitbull/ mix dog, notes vaccines up to date. No other injuries noted. On arrival, BP 111/63, HR 60, O2 sat 100% on RA, Afebrile. BC unremarkable. INR 1.1. Chemistry unremarkable except for K+ 3.2. Hand X-ray unremarkable. On exam, patient noted to have puncture wound to left hand w/ exposed tendon, decreased ROM of thumb/2nd finger due to injury. Dr. Covarrubias consulted, plan is for surgical intervention. 03-07 PATIENT TO GO FOR SURGERY WITH DR COVARRUBIAS TODAY CONTINUE CURRENT CARE AM LABS STEVEN RN AND PATIENT AND CASE MANAGEMENT 03-08 TOLERATING PAIN TAKING PERCOCET STEVEN RN AND PT WANTS TO GO HOME HAS COUGH WILL GIVE MUCINEX AND AUGMENTING TAKE IS TO USE AT HOME DC TO HOME TODAY FOLLOW UP WITH DR COVARRUBIAS IN 1 WEEK [employer] Prescription Drug Monitoring Database has been queried and verified prior to prescribing the controlled substance. Acute pain exception. This patient has normal, predicted, physiological, and time limited response to an adverse mechanical stimulus associated with surgery, trauma, or acute illness as described in my notes. There is a lack of alternative treatment options other than to include the prescribed narcotic treatment for this condition. Patient will need more than 3 days will do acute pain exception - Time Spent with Patient Total time spent providing and/or coordinating discharge services: Greater than 30 minutes - Quality: VTE Deep Vein Thrombosis/Pulmonary Embolism Present on Admission: No Exam Vital signs: Vital Signs 03/07/18 14:00 03/07/18 14:10 03/07/18 14:22 Temperature 99.0 F 99.0 F Pulse Rate 79 70 64 Respiratory Rate 18 18 21 Blood Pressure 113/58 L 110/58 L 106/55 L Pulse Oximetry 98 95 98 03/07/18 16:00 03/07/18 19:25 03/07/18 23:00 Temperature 97.9 F 98.0 F 98.1 F Pulse Rate 48 L 45 L 62 Respiratory Rate 16 17 17 Blood Pressure 116/57 L 115/59 L 114/55 L Pulse Oximetry 99 99 95 03/08/18 03:59 Temperature 98.0 F Pulse Rate 50 L Respiratory Rate 17 Blood Pressure 106/55 L Pulse Oximetry 96 Intake & Output 03/07/18 03/08/18 03/08/18 18:59 06:59 18:59 Intake Total 3066 / 3066 730 / 730 250 / 250 Output Total Balance 3046 / 3046 730 / 730 250 / 250 Weight 63.5 kg Intake: IV 2166 / 2166 250 / 250 250 / 250 NS Inj 1,000 ML @ 100 mls/hr IV 1816 / 1816 100 / 100 .CONT .Q10H [facility] Rx#:[id number] Unasyn Inj 3 GM In NS Inj 100 200 / 200 200 / 200 100 / 100 ML @ 200 mls/hr IV.SIG Q6H [facility] Rx#:[id number] Cleocin 900 mg/NS Premix 900 mg 50 / 50 50 / 50 50 / 50 In 50 ml @ 100 mls/hr IV.SIG Q8H [facility] Rx#:[id number] Ancef Inj 1,000 MG In NS Inj 100 / 100 100 ML @ 100 mls/hr IV.SIG ONCE ONE Rx#:[id number] Oral 480 / 480 Anesthesia Amount 900 / 900 Output: Estimated Blood Loss Other: # Voids 6 Date of Last Bowel Movement 03/06/18 03/08/18 # Bowel Movements 0 Narrative: GENERAL: Pleasant young white female in no acute distress. SKIN: Focused skin assessment warm and dry. LEFT HAND IS DRESSED HEENT: PERRLA, EOMI. No scleral icterus or conjunctival pallor. No lid lag or facial droop. CARDIOVASCULAR: Regular rate and rhythm. No obvious murmurs to auscultation. No chest tenderness to palpation. RESPIRATORY: No obvious rhonchi or wheezing. Clear to auscultation. Breath sounds equal bilaterally. GASTROINTESTINAL: Abdomen soft, non-tender, nondistended. BS normal. MUSCULOSKELETAL: Extremities without clubbing, cyanosis, or edema. No obvious deformities. Left hand w/ puncture to left thumb/snuff box w/ exposed tendon. Decreased ROM of 1st/2nd digits. LEFT HAND IS DRESSED NEUROLOGICAL: Awake, alert and oriented x4. No focal neurologic deficits. Moving both upper and lower extremities spontaneously. PSYCHIATRIC: Appropriate mood and affect. Insight and judgment normal. Results Procedures completed during hospitalization: DATE OF OPERATION: 03/07/2018 PREOPERATIVE DIAGNOSIS: 1. Dog bite, left hand. 2. Avulsion extensor pollicis longus tendon, left hand. POSTOPERATIVE DIAGNOSIS: 1. Dog bite, left hand. 2. Avulsion extensor pollicis longus tendon, left hand. PROCEDURES: 1. Irrigation and debridement, left hand, including skin and subcutaneous tissue. 2. Tendon transfer: Extensor indicis pollicis to extensor pollicis longus. SURGEON: Maritza Covarrubias MD ANESTHESIA: General and local. TOURNIQUET TIME: 62 minutes at 200 mmHg. INDICATIONS FOR PROCEDURE: Zabrina Grullon is a 32-year-old, right-hand dominant female who presented to the emergency room last night after being bitten by her dog. The patient was admitted for antibiotics and surgical intervention. Patient wanted to proceed with surgical intervention. Risks were explained which include but are not limited to wound complication, infection, stiffness, pain, need for additional surgeries, and she elected to proceed. DESCRIPTION PROCEDURE: The patient was identified in the preoperative holding area and the correct extremity was marked. The patient was taken to the operating room where anesthesia was induced. Left upper extremity was prepped in the normal sterile fashion. The wound was extended proximally and distally. The stump of the extensor pollicis longus was found distally. There was no remaining tendon proximally as there was just the EPL muscle belly without any tendon. Thus, decision was made to perform an EIP to EPL tendon transfer. The EIP was identified and incised distally. The tendon was brought underneath the sensory branch and repaired with the thumb in extension. This had improved extension of the thumb as well as well-maintained flexion to the index finger. This was repaired with a Pulvertaft weave using a FiberWire. Tourniquet was released. Hemostasis obtained. The wounds were irrigated with antibiotic saline and closed with nylon. The patient was placed at the thumb spica splint and awoken from anesthesia without any complications. She remained in the hospital on IV antibiotics and will begin on a therapy course. Maritza Covarrubias MD Completed studies during hospitalization: Laboratory Results WBC 6.8 th/mm3 (4.0-11.0) 03/08/18 04:35 RBC 3.57 mil/mm3 (4.00-5.30) L 03/08/18 04:35 Hgb 10.9 gm/dL (11.6-15.3) L 03/08/18 04:35 Hct 32.4 % (35.0-46.0) L 03/08/18 04:35 MCV 90.8 fL (80.0-100.0) 03/08/18 04:35 MCH 30.6 pg (27.0-34.0) 03/08/18 04:35 MCHC 33.7 % (32.0-36.0) 03/08/18 04:35 RDW 12.5 % (11.6-17.2) 03/08/18 04:35 Plt Count 214 th/mm3 (150-450) 03/08/18 04:35 MPV 8.7 fL (7.0-11.0) 03/08/18 04:35 Neut % (Auto) 67.9 % (16.0-70.0) 03/08/18 04:35 Lymph % (Auto) 22.2 % (9.0-44.0) 03/08/18 04:35 [place] % (Auto) 9.6 % (0.0-8.0) H 03/08/18 04:35 Eos % (Auto) 0.1 % (0.0-4.0) 03/08/18 04:35 Baso % (Auto) 0.2 % (0.0-2.0) 03/08/18 04:35 Neut # (Auto) 4.6 th/mm3 (1.8-7.7) 03/08/18 04:35 Lymph # (Auto) 1.5 th/mm3 (1.0-4.8) 03/08/18 04:35 [place] # (Auto) 0.6 th/mm3 (0.0-0.9) 03/08/18 04:35 Eos # (Auto) 0.0 th/mm3 (0.0-0.4) 03/08/18 04:35 Baso # (Auto) 0.0 th/mm3 (0.0-0.2) 03/08/18 04:35 WBC Differential . 03/08/18 04:35 Differential Comment Auto diff final 03/08/18 04:35 PT 11.0 sec (9.8-11.6) 03/06/18 18:30 INR 1.1 Ratio 03/06/18 18:30 APTT 20.8 sec (24.3-30.1) L 03/06/18 18:30 Sodium 136 meq/L (136-145) 03/08/18 04:35 Potassium 4.1 meq/L (3.5-5.1) 03/08/18 04:35 Chloride 102 meq/L (98-107) 03/08/18 04:35 Carbon Dioxide 23.1 meq/L (21.0-32.0) 03/08/18 04:35 Anion Gap 11 meq/L (5-15) 03/08/18 04:35 BUN 10 mg/dL (7-18) 03/08/18 04:35 Creatinine 0.77 mg/dL (0.50-1.00) 03/08/18 04:35 Estimated GFR 86 mL/min (>89) L 03/08/18 04:35 Random Glucose 95 mg/dL (74-106) 03/08/18 04:35 Calcium 8.1 mg/dL (8.5-10.1) L 03/08/18 04:35 Phosphorus 4.3 mg/dL (2.5-4.9) 03/08/18 04:35 Magnesium 2.0 mg/dL (1.5-2.5) 03/08/18 04:35 Total Bilirubin 1.2 mg/dL (0.2-1.0) H 03/08/18 04:35 AST 11 U/L (15-37) L 03/08/18 04:35 ALT 16 U/L (10-53) 03/08/18 04:35 Alkaline Phosphatase 43 U/L (45-117) L 03/08/18 04:35 Total Protein 6.1 g/dL (6.4-8.2) L 03/08/18 04:35 Albumin 3.3 g/dL (3.4-5.0) L 03/08/18 04:35 TSH 1.220 uIU/mL (0.358-3.740) 03/08/18 04:35 Free T4 1.41 ng/dL (0.76-1.46) 03/08/18 04:35 Impressions Hand X-Ray 03/06/18 19:27 CONCLUSION: Unremarkable study. Labs on day of discharge: Labs from last 24 hours 03/08/18 03/08/18 03/08/18 04:35 04:35 04:35 WBC 6.8 RBC 3.57 L Hgb 10.9 L Hct 32.4 L MCV 90.8 MCH 30.6 MCHC 33.7 RDW 12.5 Plt Count 214 MPV 8.7 Neut % (Auto) 67.9 Lymph % (Auto) 22.2 [place] % (Auto) 9.6 H Eos % (Auto) 0.1 Baso % (Auto) 0.2 Neut # (Auto) 4.6 Lymph # (Auto) 1.5 [place] # (Auto) 0.6 Eos # (Auto) 0.0 Baso # (Auto) 0.0 WBC Differential . Differential Comment Auto diff final Sodium 136 Potassium 4.1 Chloride 102 Carbon Dioxide 23.1 Anion Gap 11 BUN 10 Creatinine 0.77 Estimated GFR 86 L Random Glucose 95 Hemoglobin A1c Pending Calcium 8.1 L Phosphorus 4.3 Magnesium 2.0 Total Bilirubin 1.2 H AST 11 L ALT 16 Alkaline Phosphatase 43 L Total Protein 6.1 L Albumin 3.3 L TSH 1.220 Free T4 1.41 - Impressions ITS Impressions Hand X-Ray 03/06/18 19:27 CONCLUSION: Unremarkable study. Discharge Plan - Discharge Disposition Patient Disposition: 01 Discharge Home - Discharge Condition Condition: Good - Discharge Order Discharge Orders: Discharge Order (Routine); Ordered 03/08/18 Ordered By: Nabil Solares Hand Surgery Clear for Discharge (Routine); Ordered 03/07/18 Ordered By: Maritza Covarrubias - Discharge Details Anticipated Discharge Date: 03/08/18 Discharge Comment: dc to home - Physicians Team Primary Care Provider: Primary Care Physici,No Attending Provider: Nabil Solares Other Providers: Maritza Covarrubias MD
[2018-03-08 14:05] VITALS: BP 106/59; PULSE 51; RESP 16; TEMP 98.3; O2SAT 97
[2018-03-08 15:49] LABS: Hemoglobin A1c 5.4 % (4.3-6.0)
== END 2018-03-08 15:01 | disposition home or self-care (01) ==
LOC: NEPC 18:51 → NEDA 21:06 → N06 22:00
PROVIDERS: ADMIT Hospitalist; ATTEND Hospitalist